=== PATIENT | female | born 1985 ===

== ENCOUNTER 2020-09-13 11:16 | Outpatient (CLI) | payer BC, MEDICAID ==
[2020-09-13] MEDS ORDERED: LACTATED RINGERS 500 ML IV ONE (12:05)
[2020-09-13] MEDS ORDERED: LACTATED RINGERS 2,000 ML ONE (12:08)
[2020-09-13] MEDS ORDERED: LACTATED RINGERS 1,000 ML IV SCH (12:15)
[2020-09-13] MEDS ORDERED: TERBUTALINE 1 MG/1 ML INJ SUB-Q SCH (13:00)
[2020-09-13 14:00] VITALS: BP 112/53
== END 2020-09-13 14:30 | disposition home or self-care (01) ==
LOC: TRG 11:16 → APU 11:17 → TRG 14:30
PROVIDERS: ATTEND Obstetrics & Gynecology
DX: O62.9 Abnormality of forces of labor, unspecified (principal); O09.523 Supervision of elderly multigravida, third trimester; Z3A.32 32 weeks gestation of pregnancy
CPT/HCPCS: 96360; 96361; 96372; J3105; J7120; 96365

== ENCOUNTER 2020-09-15 16:07 | Outpatient (CLI) | payer BC, MEDICAID ==
[2020-09-15] MEDS ORDERED: LACTATED RINGERS 500 ML IV ONE (17:23)
[2020-09-15] MEDS ORDERED: LACTATED RINGERS 1,000 ML IV SCH (17:30)
[2020-09-15 18:31] LABS: Bilirubin,Urine NEG (Negative); Blood,Urine SM (Negative); Color,Urine Straw (Yellow); Mucus,Urine FEW /HPF; Protein,Urine <15 mg/dL mg/dL (Negative); Urobilinogen,Urine < 2.0 mg/dL (<2.0); WBC,Urine < 1.0 /HPF (0.0-6.0)
[2020-09-15] MEDS ORDERED: NIFEdipine*For Tocolysis only* 10 MG CAPSULE PO ONE (18:35)
[2020-09-15] MEDS ORDERED: TERBUTALINE 1 MG/1 ML INJ SUB-Q ONE (19:03)
[2020-09-15 19:19] VITALS: BP 106/55
== END 2020-09-15 20:47 | disposition home or self-care (01) ==
LOC: TRG 16:07 → APU 16:09 → TRG 20:47
PROVIDERS: ATTEND Obstetrics & Gynecology
DX: O47.03 False labor before 37 completed weeks of gestation, third trimester (principal); Z3A.33 33 weeks gestation of pregnancy
CPT/HCPCS: 81001; J7120

== ENCOUNTER 2020-10-25 23:11 | Inpatient (IN) | payer BC, MEDICAID ==
[2020-10-26] MEDS ORDERED: fentaNYL 100 MCG/2 ML INJ IV PRN (04:38)
[2020-10-26] MEDS ORDERED: LIDOCAINE (2%) 20 MG/1 ML VIAL 20 ML MDV INFILTRATI ONE (04:38)
[2020-10-26] MEDS ORDERED: ePHEDrine SULFATE 50 MG/1 ML INJ IV PRN ×2 (04:38→09:00)
[2020-10-26] MEDS ORDERED: TERBUTALINE 1 MG/1 ML INJ SUB-Q PRN (04:38)
[2020-10-26] MEDS ORDERED: AMPICILLIN/NS 2 GM/100 ML 2 GM/100 ML BAG IV ONE (04:38)
[2020-10-26] MEDS ORDERED: MINERAL OIL 30 ML ORAL LIQD PO PRN (04:38)
[2020-10-26] MEDS ORDERED: PROMETHAZINE 25 MG TAB PO PRN ×2 (04:38→17:25)
[2020-10-26] MEDS ORDERED: NalbUPHINE 10 MG/1 ML INJ IV PRN (04:38)
--- NOTE | 2020-10-26 04:42 | Ultrasound Report ---
LIMITED OBSTETRICAL ULTRASOUND INDICATION: Term , amniotic fluid and presentation evaluation COMPARISON: None FINDINGS: Term intrauterine is seen with fetus in a cephalic position. Anterior placenta is not well evaluated but is free of the internal cervical os. cardiac activity was documented at 153 bpm. Amniotic fluid volume is within normal limits with an KASHMIR of 8.8 cm. Full anatomical survey was not performed. BIOPHYSICAL PROFILE breathing movements: 2/2 movements: 2/2 posture and tone tone: 2/2 Qualitative amniotic fluid volume: 2/2 Total score: 8/8, within normal limits Signer Name: Damaso Lopez MD Signed: 10/26/2020 4:37 AM Workstation Name: [id number]
--- NOTE | 2020-10-26 04:46 | History and Physical Report ---
<EMILY POTTER D - Last Filed: 10/26/20 08:03> History of Present Illness Date of admission: 10/26/20 04:38 History of present illness: EDC Confirmation: 11/07/2020 Gestational Age: 5 6/7 weeks Past History : 6 Term Births: 3 Premature Births: 1 Living Children: 3 Para: 4 Mult. Births: 0 Prev : 0 Aborta: 1 Elect. Ab: 1 Spont. Ab: 0 Ectopics: 0 # 1 Delivery date: 11/19/2001 Weeks Gestation: 38 labor: no Delivery type: Anesthesia type: epidural Delivery location: [facility] Sex: Female weight: 5lbs Comments: IOL for oligo/IUGR # 2 Delivery date: 09/2007 Delivery type: EAB Comments: no complications # 3 Delivery date: 12/18/2009 Weeks Gestation: 38 Delivery type: Vaginal Hours of labor: 12 Anesthesia type: epidural Delivery location: [facility] Sex: male weight: 7.25 Name: Trevon # 4 Delivery date: 08/19/2011 Weeks Gestation: 20 Delivery type: Delivery location: [facility] Comments: IUFD, had an IUD in place (mirena), prostaglandins used # 5 Delivery date: 03/04/2014 Weeks Gestation: 37 Delivery type: Vaginal Hours of labor: 10 Anesthesia type: IV medication Delivery location: [facility] Infant Sex: female weight: 6.31 Past Medical History: no sti hx hpv Abnormal Pap Smear, colpo neg Past Surgical History: negative Past Medical History Anesthesia Complications: negative Anemia: negative Autoimmune Disorder: negative Bleeding Disorder: negative Blood Transfusions: negative Breast Disease: negative Diabetes: negative Heart Disease: negative Hypertension: negative Hepatitis/Liver Disease: negative Kidney Disease/UTI: negative Neurologic/Epilepsy/Migraines: negative Phlebitis/Varicosities: negative Psychiatric: positive, PPD s/p IUFD, denies SI/HI, referred to Psych Pulmonary Disease/Asthma: negative Thyroid Disease: negative Hospitalizations: negative 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 Infection History Hx of STD: HPV HIV Risk Eval: no Hepatitis B Risk Eval: low risk Personal hx. of genital herpes: no Partner hx. of genital herpes: no Rash, Viral, or Febrile illness since last LMP? no Varicella/Chicken Pox Status: Previous Disease TB Risk: no Genetic History ADVANCED MATERNAL AGE Congenital Heart Defect: Mom: no Dad: no Torey Disease: Mom: no Dad: no Thalassemia Mom: no Dad: no Neural Tube Defect Mom: no Dad: no Down's Syndrome Mom: no Dad: no Ted-Sachs Mom: no Dad: no Sickle Cell Disease/Trait Mom: no Dad: no Hemophilia Mom: no Dad: no Muscular Dystrophy Mom: no Dad: no Cystic Fibrosis Mom: no Dad: no Dennise Chorea Mom: no Dad: no Mental Retardation Mom: no Dad: no Fragile X Mom: no Dad: no Other Genetic/Chromosomal Disorder Mom: no Dad: no Child w/other defect Mom: no Dad: no Enviromental Exposures Xray Exposure: no Medication, drug, or alcohol use since LMP: no Chemical/Other Exposure: no Exposure to Cat Liter: no Hx of Parvovirus (Fifth Disease): no Occupational Exposure to Children: none Active Medications (reviewed today): ONDANSETRON 8 MG ORAL TABLET DISINTEGRATING (ONDANSETRON) 1 po q12hrs prn PLUS 27-1 MG ORAL TABLET ( VIT-FE FUMARATE-FA) 1 po daily Current Allergies (reviewed today): No known allergies Laboratory Results: HBsAg Screen Negative Negative *1 RPR Non Reactive Non Reactive *2 Rubella Antibodies, IgG 7.62 index Immune >0.99 *3 Non-immune <0.90 Equivocal 0.90 - 0.99 Immune >0.99 ABO Grouping O *4 Rh Factor Positive *5 Please note: Prior records for this patient's ABO / Rh type are not available for additional verification. Antibody Screen Negative Negative *6 WBC 7.8 x10E3/uL 3.4-10.8 *7 RBC 4.26 x10E6/uL 3.77-5.28 *8 Hemoglobin 12.4 g/dL 11.1-15.9 *9 Hematocrit 37.6 % 34.0-46.6 *10 MCV 88 fL 79-97 *11 MCH 29.1 pg 26.6-33.0 *12 MCHC 33.0 g/dL 31.5-35.7 *13 RDW 13.2 % 11.7-15.4 *14 Platelets 271 x10E3/uL 150-450 *15 Neutrophils 63 % Not Estab. *16 Lymphs 31 % Not Estab. *17 Monocytes 5 % Not Estab. *18 Eos 1 % Not Estab. *19 Basos 0 % Not Estab. *20 ! Immature Cells <No Reported Value> *21 Neutrophils (Absolute) 4.9 x10E3/uL 1.4-7.0 *22 Lymphs (Absolute) 2.4 x10E3/uL 0.7-3.1 *23 Monocytes(Absolute) 0.4 x10E3/uL 0.1-0.9 *24 Eos (Absolute) 0.0 x10E3/uL 0.0-0.4 *25 Baso (Absolute) 0.0 x10E3/uL 0.0-0.2 *26 ! Immature Granulocytes 0 % Not Estab. *27 ! Immature Grans (Abs) 0.0 x10E3/uL 0.0-0.1 *28 ! NRBC <No Reported Value> *29 Hematology Comments: <No Reported Value> *30 Tests: (2) HIV Ag/Ab with Reflex ([id number]) HIV Screen 4th Generation wRfx Non Reactive Non Reactive *31 Tests: (3) HCV Ab w/Rflx to Verification ([id number]) ! HCV Ab <0.1 s/co ratio 0.0-0.9 *32 Tests: (4) Comment: ([id number]) ! Comment: SPRCS *33 Non reactive HCV antibody screen is consistent with no HCV infection, unless recent infection is suspected or other evidence exists to indicate HCV infection. Tests: (5) Urine Culture, Routine ([id number]) Urine Culture, Routine RPR Non Reactive Non Reactive *1 Tests: (2) HIV Ag/Ab with Reflex ([id number]) HIV Screen 4th Generation wRfx Non Reactive Non Reactive *2 Performed At: , [facility] [address] [id number] Patrick Amaya MD Phone: [phone] Note: An exclamation caleb (!) indicates a result that was not dispersed into the flowsheet. Document Creation Date: 10/05/2020 9:15 AM Order Note: Clinical Information: SRC:VR SRC:UR Chlamydia by BERTIN Negative Negative *1 Gonococcus by BERTIN Negative Negative *2 Trich vag by BERTIN Negative Negative *3 Tests: (2) Strep Gp B BERTIN ([id number]) ! Strep Gp B BERTIN [A] Positive Negative *4 Centers for Disease Control and Prevention (CDC) and [place] [employer] of Obstetricians and Gynecologists (ACOG) guidelines for prevention of group B streptococcal (GBS) disease specify co-collection of a vaginal and rectal swab specimen to maximize sensitivity of GBS detection. Per the CDC and ACOG, swabbing both the lower vagina and rectum substantially increases the yield of detection compared with sampling the vagina alone. Penicillin G, ampicillin, or cefazolin are indicated for intrapartum prophylaxis of GBS colonization. Reflex susceptibility testing should be performed prior to use of clindamycin only on GBS isolates from penicillin-allergic women who are considered a high risk for anaphylaxis. Treatment with vancomycin without additional testing is warranted if resistance to clindamycin is noted. Performed At: , [address] [id number] Patrick Amaya MD Phone: [phone] Note: An exclamation caleb (!) indicates a result that was not dispersed into the flowsheet. Document Creation Date: 10/07/2020 6:10 AM Medications and Allergies Allergies Allergy/AdvReac Type Severity Reaction Status Date / Time No Known Allergies Allergy Verified 09/15/20 17:19 Home Medications Medication Instructions Recorded Confirmed Last Taken Type Vits96/Iron Fum/Folic 1 tab PO DAILY 03/03/14 09/15/20 09/14/20 History [ Tablet] Iron 325 MG 1 tab PO DAILY 09/15/20 09/15/20 09/14/20 History Active Meds: Active Medications Acetaminophen (Acetaminophen 500 Mg Tab) 1,000 mg PO Q6H PRN PRN Reason: Pain, Mild (1-3) Ephedrine Sulfate (Ephedrine Sulfate 50 Mg/1 Ml Inj) 10 mg IV Q2M PRN PRN Reason: Hypotension Fentanyl (Fentanyl 100 Mcg/2 Ml Inj) 100 mcg IV Q2H PRN PRN Reason: Pain,Severe (7-10) LABOR PAIN Oxytocin/Sodium Chloride (Pitocin/Ns 30 Unit/500ml) 30 units in 500 mls @ 2 mls/hr IV TITR MIKAYLA; Protocol Lactated Ringer's (Lactated Ringers) 1,000 mls @ 125 mls/hr IV DIRECT MIKAYLA Last Admin: 10/26/20 07:34 Dose: 1,200 mls/hr Documented by: Oxytocin/Sodium Chloride (Pitocin/Ns 30 Unit/500ml) 30 units in 500 mls @ 40 mls/hr IV TITR MIKAYLA; Protocol Mineral Oil (Mineral Oil 30 Ml Oral Liqd) 30 ml PO QHS PRN PRN Reason: Constipation Nalbuphine HCl (Nalbuphine 10 Mg/1 Ml Inj) 10 mg IV Q2H PRN PRN Reason: Pain, Moderate (4-6) Promethazine HCl (Promethazine 25 Mg Tab) 25 mg PO Q6H PRN PRN Reason: Nausea And Vomiting Terbutaline Sulfate (Terbutaline 1 Mg/1 Ml Inj) 0.25 mg SUB-Q ONCE PRN PRN Reason: Hyperstimulation/Hypertonicity - Vital Signs Vital signs: Vital Signs Pulse Pulse Ox 80 99 10/25/20 23:37 10/25/20 23:37 Temp Pulse Resp BP Pulse Ox 98.2 F 77 79 H 118/57 97 10/26/20 07:33 10/26/20 07:56 10/26/20 07:33 10/26/20 07:33 10/26/20 07:56 Results Result Diagrams: 10/26/20 05:45 Abnormal lab results 10/26/20 Range/Units 05:45 Hgb 9.7 L (10.1-14.3) gm/dl Hct 29.6 L (30.3-42.9) % MCV 71 L (79-97) fl MCH 23 L (28-32) pg RDW 19.2 H (13.2-15.2) % All other labs normal. <LEROY CALDERÓN - Last Filed: 10/26/20 09:10> History of Present Illness Date of examination: 10/26/20 (Ctxs, intermittent category 2 monitor tracing.) Date of admission: 10/26/2020 Chief complaint: Ctxs for the last couple of days with ctxs getting stronger tonight. History of present illness: Pt presented to triage with c/o ctxs that were getting stronger. Initial cervical exam in triage was 2/40/-4. Per RN, pt has a category 1 strip with some intermittent minimal variability. BPP was ordered and found to be 8/8. Pt was allowed to walk and upon return to triage cervical exam was 4/50/-4 with a category 2 strip. Admission orders were placed. 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 Colpo negative) Family/Genetic History: none Social history: no significant social history - Obstetrical History Expected Date of Delivery: 11/07/20 Actual Gestation: 38 Week(s) 2 Day(s) : 6 Para: 3 Hx # Term Pregnancies: 3 Number of Pregnancies: 1 (IUFD @ 20 weeks. Had [address] in place.) Spontaneous Abortions: 0 Induced : 1 Number of Living Children: 1 Review of Systems All systems: negative - Vital Signs Vital signs: Vital Signs Pulse Pulse Ox 80 99 10/25/20 23:37 10/25/20 23:37 Temp Pulse Resp BP Pulse Ox 98.6 F 74 18 120/67 98 10/25/20 23:38 10/26/20 01:38 10/25/20 23:38 10/25/20 23:42 10/26/20 01:38 Pt with a history of depression after an IUFD delivery. Currently denies SI, wanting to harm self, others. - Physical Exam Breasts: Positive: deferred Cardiovascular: Regular rate Lungs: Positive: Normal air movement Abdomen: Positive: normal appearance, soft Genitourinary (Female): Positive: normal external genitalia, normal perenium Vulva: both: normal Vagina: Positive: normal moisture Uterus: Positive: normal size Extremities: Positive: normal - Obstetrical FHR: category 1 (With intermittent periods of category 2.) Uterine Contraction Monitor Mode: External Cervical Dilatation: 4 (Intact membranes.) Cervical Effacement Percentage: 50 station: -3 Uterine Contraction Pattern: Regular Uterine Tone Measurement Phase: Resting Uterine Contraction Intensity: Moderate Results Result Diagrams: 10/26/20 05:45 All other labs normal. GBS POSITIVE HBsAg Screen Negative Negative *1 RPR Non Reactive Non Reactive *2 Rubella Antibodies, IgG 7.62 index Immune >0.99 *3 Non-immune <0.90 Equivocal 0.90 - 0.99 Immune >0.99 ABO Grouping O *4 Rh Factor Positive *5 Antibody Screen Negative Negative *6 Tests: (2) HIV Ag/Ab with Reflex ([id number]) HIV Screen 4th Generation wRfx Non Reactive Non Reactive *31 Tests: (3) HCV Ab w/Rflx to Verification ([id number]) ! HCV Ab <0.1 s/co ratio 0.0-0.9 *32 Tests: (4) Comment: ([id number]) ! Comment: SPRCS *33 Non reactive HCV antibody screen is consistent with no HCV infection, unless recent infection is suspected or other evidence exists to indicate HCV infection. Assessment and Plan A: 35 y.o. @ 38.2 wks, labor. Cervical exam /3. GBS positive. Category 1 strip, with intermittent category 2. History of depression after IUFD. - Patient Problems (1) Category II heart rate tracing during maternal care in third trimester Current Visit: Yes Status: Acute Plan to address problem: Will continue to monitor monitor strip as labor progresses. (2) with 38 completed weeks gestation Current Visit: Yes Status: Acute Plan to address problem: Admit to labor and delivery. Initiate IV. IV fluid bolus for epidural placement. Draw admission labs. Anticipate . (3) GBS (group B streptococcus) infection Current Visit: Yes Status: Acute Plan to address problem: Antibiotics ordered. (4) History of depression Current Visit: Yes Status: Acute Plan to address problem: After delivery, will continually assess for s/sx of depression and will place psych order if needed.
[2020-10-26] MEDS ORDERED: ACETAMINOPHEN 500 MG TAB PO PRN (04:49)
[2020-10-26] MEDS ORDERED: OXYTOCIN DRIP 30 UNITS/500 ML BAG IV SCH ×3 (05:00→17:25)
[2020-10-26 06:16] LABS: Hematocrit 29.6 % (30.3-42.9); Hemoglobin 9.7 gm/dl (10.1-14.3); Mean Corpuscular HGB Conc 33 % (30-34); Mean Corpuscular Volume 71 fl (79-97); Platelet Count 331 K/mm3 (140-440); Red Blood Count 4.16 M/mm3 (3.65-5.03); Red Cell Distribution Width 19.2 % (13.2-15.2)
[2020-10-26] MEDS: LACTATED RINGERS 1,000 ML IV SCH ×2 (07:34→08:51)
--- NOTE | 2020-10-26 08:32 | Anesthesia Consultation ---
Anesthesia Consult and Med Hx Date of service: 10/26/20 - Airway Anesthetic Teeth Evaluation: Good ROM Head & Neck: Adequate Mental/Hyoid Distance: Adequate Mallampati Class: Class II Intubation Access Assessment: Probably Good - Pulmonary Exam CTA: Yes - Cardiac Exam Cardiac Exam: RRR - Pre-Operative Health Status ASA Pre-Surgery Classification: ASA2 Proposed Anesthetic Plan: Epidural - Pulmonary Hx Asthma: No COPD: No Hx Pneumonia: No - Cardiovascular System Hx Hypertension: No - Central Nervous System Hx Seizures: No Hx Psychiatric Problems: Yes (anxiety) - Endocrine Hx Renal Disease: No Hx End Stage Renal Disease: No Hx Hypothyroidism: No Hx Hyperthyroidism: No - Hematic Hx Anemia: Yes (on iron) Hx Sickle Cell Disease: No - Other Systems Hx Alcohol Use: (not since )
[2020-10-26] MEDS ORDERED: NALOXONE 2 MG/2 ML INJ IV PRN (08:46)
[2020-10-26] MEDS ORDERED: fentaNYL-BUPIV 2 MCG/ML-0.125% 200 MCG/100 ML BAG EPIDURAL SCH (09:00)
[2020-10-26] MEDS ORDERED: AMPICILLIN/NS 1 GM/50 ML 1 GM/50 ML BAG IV SCH (09:00)
--- NOTE | 2020-10-26 09:22 | Progress Note ---
Assessment and Plan Still no relief with epidural, will consider AROM after 2nd dose of antibiotics and better pain control. Patient voiced understanding and agrees with POC - Patient Problems (1) GBS (group B streptococcus) infection Current Visit: Yes Status: Acute (2) History of IUFD Current Visit: Yes Status: Acute (3) History of depression Current Visit: Yes Status: Acute (4) with 38 completed weeks gestation Current Visit: Yes Status: Acute (5) Active labor at term Current Visit: No Status: Acute Subjective - Subjective Date of service: 10/26/20 Principal diagnosis: 38 wga, labor Patient reports: contractions, no new complaints Objective - Vital Signs Vital Signs: Vital Signs - 12hr 10/25/20 10/25/20 10/25/20 23:37 23:38 23:42 Temperature 98.6 F Pulse Rate 80 79 95 H Respiratory 18 Rate Blood Pressure 120/67 Blood Pressure 120/67 [Right] O2 Sat by Pulse 99 98 99 Oximetry 10/25/20 10/25/20 10/25/20 23:47 23:52 23:57 Temperature Pulse Rate 77 75 83 Respiratory Rate Blood Pressure Blood Pressure [Right] O2 Sat by Pulse 98 98 98 Oximetry 10/26/20 10/26/20 10/26/20 00:02 00:07 00:12 Temperature Pulse Rate 80 88 91 H Respiratory Rate Blood Pressure Blood Pressure [Right] O2 Sat by Pulse 97 97 98 Oximetry 10/26/20 10/26/20 10/26/20 00:17 00:22 00:27 Temperature Pulse Rate 71 84 85 Respiratory Rate Blood Pressure Blood Pressure [Right] O2 Sat by Pulse 97 98 97 Oximetry 10/26/20 10/26/20 10/26/20 00:32 00:37 00:42 Temperature Pulse Rate 85 80 72 Respiratory Rate Blood Pressure Blood Pressure [Right] O2 Sat by Pulse 97 97 97 Oximetry 10/26/20 10/26/20 10/26/20 00:47 00:52 00:57 Temperature Pulse Rate 90 80 76 Respiratory Rate Blood Pressure Blood Pressure [Right] O2 Sat by Pulse 97 98 98 Oximetry 10/26/20 10/26/20 10/26/20 01:02 01:07 01:12 Temperature Pulse Rate 74 80 91 H Respiratory Rate Blood Pressure Blood Pressure [Right] O2 Sat by Pulse 98 97 98 Oximetry 10/26/20 10/26/2010/26/21 01:17 01:38 07:31 Temperature Pulse Rate 99 H 74 87 Respiratory Rate Blood Pressure Blood Pressure [Right] O2 Sat by Pulse 98 98 100 Oximetry 10/26/20 10/26/20 10/26/20 07:32 07:33 07:36 Temperature 98.2 F Pulse Rate 81 81 78 Respiratory 79 H Rate Blood Pressure 118/57 Blood Pressure 118/57 [Right] O2 Sat by Pulse 100 97 Oximetry 10/26/20 10/26/20 10/26/20 07:41 07:46 07:51 Temperature Pulse Rate 81 74 78 Respiratory Rate Blood Pressure Blood Pressure [Right] O2 Sat by Pulse 96 97 98 Oximetry 10/26/20 10/26/20 10/26/20 07:56 08:01 08:06 Temperature Pulse Rate 77 75 74 Respiratory Rate Blood Pressure Blood Pressure [Right] O2 Sat by Pulse 97 96 98 Oximetry 10/26/20 10/26/20 10/26/20 08:11 08:16 08:21 Temperature Pulse Rate 71 94 H 74 Respiratory Rate Blood Pressure Blood Pressure [Right] O2 Sat by Pulse 98 97 95 Oximetry 10/26/20 10/26/20 10/26/20 08:26 08:39 08:44 Temperature Pulse Rate 71 88 100 H Respiratory Rate Blood Pressure Blood Pressure [Right] O2 Sat by Pulse 99 100 100 Oximetry 10/26/20 10/26/20 10/26/20 08:49 08:52 08:54 Temperature Pulse Rate 89 90 88 Respiratory Rate Blood Pressure 119/56 Blood Pressure [Right] O2 Sat by Pulse 99 100 Oximetry 10/26/20 10/26/20 10/26/20 08:58 08:59 09:01 Temperature Pulse Rate 88 84 95 H Respiratory Rate Blood Pressure 148/63 Blood Pressure [Right] O2 Sat by Pulse 100 82 L Oximetry 10/26/20 10/26/20 10/26/20 09:04 09:08 09:09 Temperature Pulse Rate 80 83 79 Respiratory Rate Blood Pressure 117/56 Blood Pressure [Right] O2 Sat by Pulse 99 98 Oximetry 10/26/20 10/26/20 09:12 09:14 Temperature Pulse Rate 84 85 Respiratory Rate Blood Pressure 113/59 Blood Pressure [Right] O2 Sat by Pulse 99 Oximetry - Exam FHR: category 1 Cervical Dilatation: 5 (per RN, she declined MD exam) Uterine Contraction Pattern: Irregular - Labs Labs: Abnormal Labs 10/26/20 05:45 Hgb 9.7 L Hct 29.6 L MCV 71 L MCH 23 L RDW 19.2 H Laboratory Results - last 24 hr 10/26/20 10/26/20 10/26/20 05:45 05:45 05:45 WBC 10.1 RBC 4.16 Hgb 9.7 L Hct 29.6 L MCV 71 L MCH 23 L MCHC 33 RDW 19.2 H Plt Count 331 Syphilis IgG Antibody Nonreactive Blood Type O POSITIVE Antibody Screen Negative
--- NOTE | 2020-10-26 09:35 | Progress Note ---
Labor Epidural - Labor Epidural Start Time: 08:46 Stop Time: 08:54 Performed by:: BRIAN ARAUJO Procedure: Patient is requesting epidural for labor pain. H&P, and labs reviewed. Procedure explained, questions answered, consent obtained. Patient in sitting position with blood pressure cuff and pulse ox on and working. Timeout performed immediately before start of procedure. Sterile chlorahexadine 0.5% prep/drape. 3 mL 1% lidocaine skin wheal at L[3]-L[4]. 18-gauge [employer] epidural needle advanced to [id number] with saline at [7] cm. Epidural catheter advanced to [12] cm, negative aspiration for blood and csf, negative test dose 3 ml 1.5% lidocaine with epinephrine. Epidural dexmedetomidine [30] mcg administered. Sterile steri-strips and tegaderm applied, followed by tape reinforcement. Patient tolerated procedure well. Brian BENTON
--- NOTE | 2020-10-26 10:15 | Progress Note ---
Labor Epidural - Labor Epidural Start Time: 09:52 Stop Time: :57 Performed by:: BRIAN ARAUJO Procedure: Patient with no relief from epidural, removed tip intact. Patient in sitting position with blood pressure cuff and pulse ox on and working. Timeout performed immediately before start of procedure. Sterile chlorahexadine 0.5% prep/drape. 3 mL 1% lidocaine skin wheal at L2-L3. 18-gauge Qustreet epidural needle advanced to [id number] with saline at [7] cm. Epidural catheter advanced to [12] cm, negative aspiration for blood and csf, negative test dose 3 ml 1.5% lidocaine with epinephrine. Epidural dexmedetomidine [30] mcg administered. Sterile steri-strips and tegaderm applied, followed by tape reinforcement. Patient tolerated procedure well. Brian BENTON
--- NOTE | 2020-10-26 11:12 | Progress Note ---
Assessment and Plan Anticipate - Patient Problems (1) GBS (group B streptococcus) infection Current Visit: Yes Status: Acute (2) History of IUFD Current Visit: Yes Status: Acute (3) History of depression Current Visit: Yes Status: Acute (4) with 38 completed weeks gestation Current Visit: Yes Status: Acute (5) Active labor at term Current Visit: No Status: Acute Subjective - Subjective Date of service: 10/26/20 Principal diagnosis: 38 wga, labor Patient reports: contractions, no new complaints Objective - Vital Signs Vital Signs: Vital Signs - 12hr 10/25/20 10/25/20 10/25/20 23:37 23:38 23:42 Temperature 98.6 F Pulse Rate 80 79 95 H Respiratory 18 Rate Blood Pressure 120/67 Blood Pressure 120/67 [Right] O2 Sat by Pulse 99 98 99 Oximetry 10/25/20 10/25/20 10/25/20 23:47 23:52 23:57 Temperature Pulse Rate 77 75 83 Respiratory Rate Blood Pressure Blood Pressure [Right] O2 Sat by Pulse 98 98 98 Oximetry 10/26/20 10/26/20 10/26/20 00:02 00:07 00:12 Temperature Pulse Rate 80 88 91 H Respiratory Rate Blood Pressure Blood Pressure [Right] O2 Sat by Pulse 97 97 98 Oximetry 10/26/20 10/26/20 10/26/20 00:17 00:22 00:27 Temperature Pulse Rate 71 84 85 Respiratory Rate Blood Pressure Blood Pressure [Right] O2 Sat by Pulse 97 98 97 Oximetry 10/26/20 10/26/20 10/26/20 00:32 00:37 00:42 Temperature Pulse Rate 85 80 72 Respiratory Rate Blood Pressure Blood Pressure [Right] O2 Sat by Pulse 97 97 97 Oximetry 10/26/20 10/26/20 10/26/20 00:47 00:52 00:57 Temperature Pulse Rate 90 80 76 Respiratory Rate Blood Pressure Blood Pressure [Right] O2 Sat by Pulse 97 98 98 Oximetry 10/26/20 10/26/20 10/26/20 01:02 01:07 01:12 Temperature Pulse Rate 74 80 91 H Respiratory Rate Blood Pressure Blood Pressure [Right] O2 Sat by Pulse 98 97 98 Oximetry 10/26/20 10/26/20 10/26/20 01:17 01:38 07:31 Temperature Pulse Rate 99 H 74 87 Respiratory Rate Blood Pressure Blood Pressure [Right] O2 Sat by Pulse 98 98 100 Oximetry 10/26/20 10/26/20 10/26/20 07:32 07:33 07:36 Temperature 98.2 F Pulse Rate 81 81 78 Respiratory 79 H Rate Blood Pressure 118/57 Blood Pressure 118/57 [Right] O2 Sat by Pulse 100 97 Oximetry 10/26/20 10/26/20 10/26/20 07:41 07:46 07:51 Temperature Pulse Rate 81 74 78 Respiratory Rate Blood Pressure Blood Pressure [Right] O2 Sat by Pulse 96 97 98 Oximetry 10/26/20 10/26/20 10/26/20 07:56 08:01 08:06 Temperature Pulse Rate 77 75 74 Respiratory Rate Blood Pressure Blood Pressure [Right] O2 Sat by Pulse 97 96 98 Oximetry 10/26/20 10/26/20 10/26/20 08:11 08:16 08:21 Temperature Pulse Rate 71 94 H 74 Respiratory Rate Blood Pressure Blood Pressure [Right] O2 Sat by Pulse 98 97 95 Oximetry 10/26/20 10/26/20 10/26/20 08:26 08:39 08:44 Temperature Pulse Rate 71 88 100 H Respiratory Rate Blood Pressure Blood Pressure [Right] O2 Sat by Pulse 99 100 100 Oximetry 10/26/20 10/26/20 10/26/20 08:49 08:52 08:54 Temperature Pulse Rate 89 90 88 Respiratory Rate Blood Pressure 119/56 Blood Pressure [Right] O2 Sat by Pulse 99 100 Oximetry 10/26/20 10/26/20 10/26/20 08:58 08:59 09:01 Temperature Pulse Rate 88 84 95 H Respiratory Rate Blood Pressure 148/63 Blood Pressure [Right] O2 Sat by Pulse 100 82 L Oximetry 10/26/20 10/26/20 10/26/20 09:04 09:08 09:09 Temperature Pulse Rate 80 83 79 Respiratory Rate Blood Pressure 117/56 Blood Pressure [Right] O2 Sat by Pulse 99 98 Oximetry 10/26/20 10/26/20 10/26/20 09:12 09:14 09:19 Temperature Pulse Rate 84 85 83 Respiratory Rate Blood Pressure 113/59 Blood Pressure [Right] O2 Sat by Pulse 99 98 Oximetry 10/26/20 10/26/20 10/26/20 09:22 09:24 09:29 Temperature Pulse Rate 72 74 70 Respiratory Rate Blood Pressure 124/59 Blood Pressure [Right] O2 Sat by Pulse 93 98 97 Oximetry 10/26/20 10/26/20 10/26/20 09:31 09:34 09:39 Temperature Pulse Rate 66 72 76 Respiratory Rate Blood Pressure Blood Pressure [Right] O2 Sat by Pulse 94 97 98 Oximetry 10/26/20 10/26/20 10/26/20 09:44 09:45 09:46 Temperature Pulse Rate 83 100 H 87 Respiratory Rate Blood Pressure 126/79 Blood Pressure [Right] O2 Sat by Pulse 100 91 Oximetry 10/26/20 10/26/20 10/26/20 09:49 09:50 09:53 Temperature Pulse Rate 83 92 H 84 Respiratory Rate Blood Pressure 120/56 99/52 Blood Pressure [Right] O2 Sat by Pulse 98 Oximetry 10/26/20 10/26/20 10/26/20 09:55 09:58 10:00 Temperature Pulse Rate 87 93 H 84 Respiratory Rate Blood Pressure 100/59 Blood Pressure [Right] O2 Sat by Pulse 98 99 Oximetry 10/26/20 10/26/20 10/26/20 10:05 10:09 10:10 Temperature Pulse Rate 87 79 77 Respiratory Rate Blood Pressure 112/59 110/59 Blood Pressure [Right] O2 Sat by Pulse 98 99 Oximetry 10/26/20 10/26/20 10/26/20 10:15 10:20 10:25 Temperature Pulse Rate 73 61 72 Respiratory Rate Blood Pressure Blood Pressure [Right] O2 Sat by Pulse 98 98 98 Oximetry 10/26/20 10/26/20 10/26/20 10:27 10:30 10:35 Temperature Pulse Rate 64 65 61 Respiratory Rate Blood Pressure 101/53 Blood Pressure [Right] O2 Sat by Pulse 95 96 Oximetry 10/26/20 10/26/20 10/26/20 10:40 10:45 10:50 Temperature Pulse Rate 68 63 63 Respiratory Rate Blood Pressure Blood Pressure [Right] O2 Sat by Pulse 98 97 96 Oximetry 10/26/20 10/26/20 10/26/20 10:51 10:55 11:00 Temperature Pulse Rate 63 83 68 Respiratory Rate Blood Pressure Blood Pressure [Right] O2 Sat by Pulse 94 97 100 Oximetry 10/26/20 11:05 Temperature Pulse Rate 74 Respiratory Rate Blood Pressure Blood Pressure [Right] O2 Sat by Pulse 99 Oximetry - Exam Breasts: deferred Cardiovascular: Regular rate Lungs: Normal air movement Abdomen: Present: soft. Absent: tenderness Vulva: both: normal Uterus: Present: fundal height above umbilicus. Absent: tenderness FHR: category 2 (+accel with scalp stimulation ) Uterine Contraction Monitor Mode: External Cervical Dilatation: 6.5 Cervical Effacement Percentage: 80 station: -1 AROM scant clear fluid, Uterine Contraction Pattern: Irregular Extremities: normal - Labs Labs: Abnormal Labs 10/26/20 05:45 Hgb 9.7 L Hct 29.6 L MCV 71 L MCH 23 L RDW 19.2 H Laboratory Results - last 24 hr 10/26/20 10/26/20 10/26/20 05:45 05:45 05:45 WBC 10.1 RBC 4.16 Hgb 9.7 L Hct 29.6 L MCV 71 L MCH 23 L MCHC 33 RDW 19.2 H Plt Count 331 Syphilis IgG Antibody Nonreactive Blood Type O POSITIVE Antibody Screen Negative
--- NOTE | 2020-10-26 13:57 | Procedure Note ---
OB Delivery Note - Delivery Date of Delivery: 10/26/20 Surgeon: EMILY POTTER Estimated blood loss: 200cc - Vaginal Delivery presentation: vertex Delivery position: OA Delivery induction: none Delivery augmentation: rupture of membranes Delivery monitor: external FHT, external uterine Route of delivery: Delivery placenta: spontaneous (intact, marginal cofd insertion) Delivery cord: nuchal cord (x1 release over shoulder with delivery) Episiotomy: none Delivery laceration: none Anesthesia: epidural - A at 1 minute: 9 at 5 minutes: 9 Gender: Male (7 lbs)
[2020-10-26] MEDS ORDERED: diphenhydrAMINE 25 MG CAP PO PRN (17:25)
[2020-10-26] MEDS ORDERED: WITCH HAZEL/ GLYCERIN PAD TP PRN (17:25)
[2020-10-26] MEDS ORDERED: PROMETHAZINE 25 MG RECT SUPP PR PRN (17:25)
[2020-10-26] MEDS ORDERED: MAGNESIUM HYDROXIDE (MOM) ORAL LIQD UDC PO PRN (17:25)
[2020-10-26] MEDS ORDERED: ONDANSETRON 4 MG/2 ML INJ IV PRN (17:25)
[2020-10-26] MEDS ORDERED: LANOLIN/ZINC/DIMETHICONE (LANSINOH) 7 GM TP PRN (17:25)
[2020-10-26] MEDS: IBUPROFEN 600 MG TAB PO SCH ×2 (18:05→23:39)
[2020-10-27 03:02] LABS: Hematocrit 27.5 % (30.3-42.9); Hemoglobin 8.7 gm/dl (10.1-14.3)
[2020-10-27] MEDS: IBUPROFEN 600 MG TAB PO SCH ×2 (05:29→12:00)
[2020-10-27] MEDS ORDERED: TETANUS,DIPH,PERTUSS(ACELL) VACCINE 0.5 ML SYRINGE IM ONE (06:00)
--- NOTE | 2020-10-27 11:49 | Post Anesthesia Evaluation ---
- Post Anesthesia Evaluation Patient Participated: Yes Airway Patent: Yes Stable Respiratory Function: Yes Nausea/Vomiting: No Temp > 96.8F: Yes Pain Manageable: Yes Adequeate Hydration: Yes Anesthesia Complications: No Block Receding Appropriately: Yes
--- NOTE | 2020-10-27 12:03 | Discharge Summary ---
Providers - Providers Date of Admission: 10/26/20 04:38 Date of discharge: 10/27/20 Attending physician: EMILY POTTER 10/26/20 17:25 Consult to Lab Support Tech [CONS] Routine Reason For Exam: assistance with , SNS Primary care physician: EMILY POTTER Hospitalization Reason for admission: active labor Delivery: Episiotomy: none Laceration: none Discharge diagnosis: IUP at term delivered [place] baby: male Hospital course: Patient resting in bed, minimal lochia. Ambulating without difficulty Abdomen soft, NT Uterus FF below umbilicus NT Exts: NT no edema Breasts: soft. No engorgement. NT Desires discharge home if baby is discharged. Normal course Condition at discharge: Good Disposition: DC-01 TO HOME OR SELFCARE - Discharge Diagnoses (1) GBS (group B streptococcus) infection Status: Acute (2) History of IUFD Status: Acute (3) History of depression Status: Acute (4) with 38 completed weeks gestation Status: Resolved (5) Active labor at term Status: Resolved (6) Anemia Status: Chronic Comment: Present at admission, asymptomatic Plan - Discharge Medications Prescriptions: Docusate Sodium [Colace] 100 mg PO BID PRN #30 capsule PRN Reason: Constipation Lidocain2.5%/Prilocai2.5% [Emla] 5 gm TP ONCE #1 tube Ferrous Sulfate [Ferrous Sulfate 324 MG] 324 mg PO BID #90 tablet.dr - Provider Discharge Summary Activity: no sex for 6 weeks, no heavy lifting 4 weeks, no strenuous exercise Diet: routine Additional instructions: [] Smoking cessation referral if applicable(refer to patient education folder for contact #) [] Refer to [facility] Booklet Call your doctor immediately for: * Fever > 100.5 * Heavy vaginal bleeding ( >1 pad per hour) * Severe persistent headache * Shortness of breath * Reddened, hot, painful area to leg or breast * Drainage or odor from incision. * Keep incision clean and dry at all times and follow doctor's instructions regarding bathing/showering - Follow up plan Follow up: EMILY POTTER MD [Primary Care Provider] - 6 Weeks
[2020-10-27 16:58] VITALS: BP 109/52
== END 2020-10-27 17:55 | disposition home or self-care (01) | DRG 807 ==
LOC: TRG 23:11 → APU 23:22 → TRG 10-26 04:38 → LD 10-26 06:21 → OB 10-26 15:50
PROVIDERS: ADMIT Obstetrics & Gynecology; ATTEND Obstetrics & Gynecology
PROC: 00HU33Z Insertion of Infusion Device into Spinal Canal, Percutaneous Approach (ICD-10-PCS; principal; 2020-10-26)
PROC: 10E0XZZ Delivery of Products of Conception, External Approach (ICD-10-PCS; 2020-10-26)
PROC: 3E0R3BZ Introduction of Anesthetic Agent into Spinal Canal, Percutaneous Approach (ICD-10-PCS; 2020-10-26)
PROC: 3E0234Z Introduction of Serum, Toxoid and Vaccine into Muscle, Percutaneous Approach (ICD-10-PCS; 2020-10-27)
DX: O99.824 Streptococcus B carrier state complicating childbirth (principal); Z37.0 Single live birth; Z20.822 Contact with and (suspected) exposure to COVID-19; O76 Abnormality in fetal heart rate and rhythm complicating labor and delivery; O99.344 Other mental disorders complicating childbirth; F41.9 Anxiety disorder, unspecified; O99.02 Anemia complicating childbirth; Z3A.38 38 weeks gestation of pregnancy; Z23 Encounter for immunization; O69.81X0 Labor and delivery complicated by cord around neck, without compression, not applicable or unspecified
CPT/HCPCS: 36415; 59025; 76815; 76819; 85014; 85018; 85027; 86592; 86850; 86900; 86901; G0378; A6250; J0290; J2590; J7120; U0003